=== PATIENT | female | born 1975 | race American Indian/Alaskan Native ===

== ENCOUNTER 2017-04-04 09:31 | Emergency (ER) | payer SELFPAY ==
[2017-04-04] MEDS ORDERED: TYLENOL PR ONE ×2 (09:49→09:55)
[2017-04-04 10:12] LABS: Basophils % (Auto) 0.4 % (0.0-1.8); Eosinophils % (Auto) 0.1 % (0.0-4.3); Hematocrit 37.4 % (30.3-42.9); Hemoglobin 12.4 gm/dl (10.1-14.3); Mean Corpuscular HGB Conc 33 % (30-34); Mean Corpuscular Hemoglobin 30 pg (28-32); Mean Corpuscular Volume 89 fl (79-97); Platelet Count 291 K/mm3 (140-440); Red Blood Count 4.19 M/mm3 (3.65-5.03); Red Cell Distribution Width 14.6 % (13.2-15.2); White Blood Count 12.7 K/mm3 (4.5-11.0)
[2017-04-04] MEDS ORDERED: TORADOL IV ONE (10:22)
[2017-04-04] MEDS ORDERED: NACL 0.9% 1000 ML 1,000 ML IV ONE ×2 (10:22→17:00)
--- NOTE | 2017-04-04 10:27 | Emergency Department Report ---
ED Abdominal Pain HPI - General Chief Complaint: Abdominal Pain Stated Complaint: FEVER/CHILLS/ABD PAIN Time Seen by Provider: 04/04/17 09:55 Source: patient Mode of arrival: Ambulatory Limitations: No Limitations - History of Present Illness Initial Comments: 42-year-old female who presents emergency Department with right lower quadrant pain. Patient has had 3 days of abdominal pain. Pain is been getting worse. She's had fevers to 104 at home. She's had some nausea and vomiting as well. She has a history of a hysterectomy but still has her appendix and gallbladder. Denies diarrhea or constipation. -: Gradual, days(s) (3) Location: RLQ Radiation: none Migration to: no migration Severity scale (0 -10): 10 Quality: stabbing, sharp Consistency: constant Improves With: nothing Worsens With: nothing Associated Symptoms: nausea, vomiting, fever, chills. denies: constipation - Related Data Home Medications Medication Instructions Recorded Confirmed Last Taken No Known Home Medications [No 04/04/17 04/04/17 Unknown Reported Home Medications] Allergies Allergy/AdvReac Type Severity Reaction Status Date / Time No Known Allergies Allergy Verified 04/04/17 09:57 ED Review of Systems ROS: Stated complaint: FEVER/CHILLS/ABD PAIN Other details as noted in HPI Comment: All other systems reviewed and negative Constitutional: denies: chills, fever Eyes: denies: eye pain, eye discharge, vision change ENT: denies: ear pain, throat pain Respiratory: denies: cough, shortness of breath, wheezing Cardiovascular: denies: chest pain, palpitations Endocrine: no symptoms reported Gastrointestinal: abdominal pain, nausea. denies: diarrhea, constipation Genitourinary: denies: urgency, dysuria, discharge Musculoskeletal: denies: back pain, joint swelling, arthralgia Skin: denies: rash, lesions Neurological: denies: headache, weakness, paresthesias Psychiatric: denies: anxiety, depression Hematological/Lymphatic: denies: easy bleeding, easy bruising ED Past Medical Hx - Past Medical History Previous Medical History?: No - Surgical History Past Surgical History?: Yes Additional Surgical History: hysterectomy. tubal ligation. hernia repair - Family History Family history: no significant - Social History Smoking Status: Never Smoker Substance Use Type: None - Medications Home Medications: Home Medications Medication Instructions Recorded Confirmed Last Taken Type No Known Home Medications [No 04/04/17 04/04/17 Unknown History Reported Home Medications] ED Physical Exam - General Limitations: No Limitations General appearance: alert, in no apparent distress - Head Head exam: Present: atraumatic, normocephalic - Eye Eye exam: Present: normal appearance. Absent: scleral icterus, conjunctival injection - ENT ENT exam: Present: mucous membranes moist - Neck Neck exam: Present: normal inspection - Respiratory Respiratory exam: Present: normal lung sounds bilaterally. Absent: respiratory distress - Cardiovascular Cardiovascular Exam: Present: regular rate, normal rhythm. Absent: systolic murmur, diastolic murmur, rubs, gallop - GI/Abdominal GI/Abdominal exam: Present: soft, tenderness (right lower quadrant), guarding ( moderate voluntary guarding), normal bowel sounds. Absent: distended, rebound - Extremities Exam Extremities exam: Present: normal inspection - Back Exam Back exam: Present: normal inspection - Neurological Exam Neurological exam: Present: alert, oriented X3 - Psychiatric Psychiatric exam: Present: normal affect, normal mood - Skin Skin exam: Present: warm, dry, intact, normal color. Absent: rash ED Course Vital Signs 04/04/17 04/04/17 04/04/17 09:38 10:25 10:41 Temperature 103.1 F H 100.5 F H Pulse Rate 123 H 119 H Respiratory 20 18 18 Rate Blood Pressure 141/90 Blood Pressure 127/76 [Left] O2 Sat by Pulse 100 98 98 Oximetry 04/04/17 04/04/17 11:00 14:23 Temperature 98.6 F Pulse Rate 83 Respiratory 14 14 Rate Blood Pressure Blood Pressure 128/81 [Left] O2 Sat by Pulse 98 Oximetry ED Medical Decision Making - Lab Data Result diagrams: 04/04/17 09:58 04/04/17 09:58 - Medical Decision Making 42-year-old female here with abdominal pain. She is very tender right lower quadrant. She has a fever to 103 and slightly elevated blood cell count. Plan CT abdomen and plan to reassess. Patient was slightly low white count. CT shows possible pyelonephritis. Plan to treat patient with for pyelonephritis. Discussed case with Dr. Sanches will admit to the hospitalist service. Portions of this chart were dictated with dictation software. There may be dictation errors contained within this note. Critical care attestation.: If time is entered above; I have spent that time in minutes in the direct care of this critically ill patient, excluding procedure time. ED Disposition Clinical Impression: Pyelonephritis Disposition: DC-[id number] OP ADMIT IP TO THIS HOSP Is pt being admited?: Yes Condition: Stable Instructions: Abdominal Pain (ED)
[2017-04-04 10:32] LABS: Alanine Aminotransferase 12 units/L (7-56); Albumin 3.4 g/dL (3.9-5); Albumin/Globulin Ratio 0.9 %; Alkaline Phosphatase 64 units/L (35-129); Anion Gap 17 mmol/L; Blood Urea Nitrogen 4 mg/dL (7-17); Calcium 8.7 mg/dL (8.4-10.2); Carbon Dioxide 25 mmol/L (22-30); Chloride 98.1 mmol/L (98-107); Glucose 119 mg/dL (65-100); Lipase 24 units/L (13-60); Potassium 3.2 mmol/L (3.6-5.0); Sodium 137 mmol/L (137-145); Total Protein 7.1 g/dL (6.3-8.2)
[2017-04-04 11:23] LABS: Bacteria,Urine 2+ /HPF (Negative); Bilirubin,Urine NEG (Negative); Blood,Urine LG (Negative); Ketones,Urine NEG (Negative); Leukocyte Esterase,Urine LG (Negative); Mucus,Urine 1+ /HPF; Nitrite,Urine POS (Negative)
[2017-04-04 11:25] LABS: WBC,Urine > 182.0 /HPF (0.0-6.0)
--- NOTE | 2017-04-04 14:31 | Cat Scan Report ---
CT SCAN OF THE ABDOMEN AND PELVIS WITH CONTRAST: HISTORY: Right lower quadrant abdominal pain. TECHNIQUE: Helical CT in 1.25mm intervals following IV contrast. Sagittal and coronal reconstructions. FINDINGS: The liver is normal in size and is without focal defect. No gallstones or biliary dilatation are noted. The spleen and pancreas demonstrate a normal size and attenuation with no evidence of abnormal mass. The kidneys are normal size and position. 1 cm cyst in the inferior right kidney. There is a very subtle perfusion defect near the superior pole of the right kidney measuring up to 5 x 2 cm. This is seen on the contrast images and delayed images. This could represent a very early polynephritis. The left kidney is normal. The adrenal glands are normal. There is no intestinal obstruction or ascites. Normal appendix. The abdominal aorta is normal. Hysterectomy has been performed. The right ovary is normal. A 2.3 cm cyst is identified in the left ovary. There is no evidence of peritoneal air or fluid. There is no evidence of any abnormal masses or fluid collections within the pelvis. No adenopathy is identified. The bladder is normal. IMPRESSION: 2.3 cm left ovarian cyst. Questionable perfusion defect in the superior right kidney. This could represent an early right pyelonephritis. These correlate with the patient's clinical presentation.
[2017-04-04] MEDS ORDERED: MORPHINE IV ONE (14:34)
[2017-04-04] MEDS ORDERED: LEVAQUIN 750MG/150ML 750 MG/150 ML BAG IV ONE (16:15)
--- NOTE | 2017-04-04 16:17 | History and Physical Report ---
History of Present Illness Chief complaint: I have fever History of present illness: 42 YO Female with No PMH presents to ED for evaluation. Pt states that she has experienced fever, and abdominal pain for the past 3 days as well as nausea. Pt seen and evaluated in ED and found to have UTI. CT Abdomen/Pelvis was completed and did not reveal evidence of acute abdomen. Pt treated with abx therapy, and IVF resuscitation with resolution of symptoms. Pt medically optimized and back to usual state of health. Pt dischrged home with oral antibiotics and instructed to f/u pcp within 5 days for f/u care. Past History Past Medical History: No medical history, other (reviewed) Past Surgical History: hysterectomy, hernia repair, Other (tibal ligation,) Social history: . denies: smoking, alcohol abuse, prescription drug abuse Family history: hypertension Medications and Allergies Allergies Allergy/AdvReac Type Severity Reaction Status Date / Time No Known Allergies Allergy Verified 04/04/17 19:48 Home Medications Medication Instructions Recorded Confirmed Last Taken Type Ciprofloxacin HCl [Ciprofloxacin 500 mg PO Q12H #20 tab 04/04/17 Unknown Rx TAB] Ondansetron [Zofran Odt] 4 mg PO TID #15 tab.rapdis 04/04/17 Unknown Rx oxyCODONE /ACETAMINOPHEN [Percocet 1 tab PO Q8HR PRN #20 tab 04/04/17 Unknown Rx 5/325] Active Meds: Active Medications Levofloxacin/Dextrose (Levaquin 750mg/150ml) 750 mg in 150 mls @ 100 mls/hr IV ONCE ONE Stop: 04/04/17 17:44 Review of Systems Constitutional: fever Ears, nose, mouth and throat: no ear pain, no ear discharge, no tinnitis, no decreased hearing, no nose pain, no nasal congestion Breasts: no change in shape, no swelling, no mass Cardiovascular: no chest pain, no orthopnea, no palpitations, no rapid/ irregular heart beat, no edema Respiratory: no cough, no cough with sputum, no excessive sputum, no hemoptysis Gastrointestinal: no constipation, no change in bowel habits, no hematemesis, no coffee ground emesis Genitourinary Female: flank pain, no dyspareunia, no dysmenorrhea, no pelvic pain, no menorrhagia, no dysuria Rectal: no pain, no incontinence, no bleeding Musculoskeletal: no neck stiffness, no neck pain Integumentary: no rash, no pruritis, no redness Neurological: no transient paralysis, no paralysis, no weakness, no numbness, no tingling, no syncope Psychiatric: no anxiety, no memory loss, no change in sleep habits, no sleep disturbances, no hypersomnia Endocrine: no cold intolerance, no heat intolerance, no polyphagia, no excessive thirst Hematologic/Lymphatic: no easy bruising, no easy bleeding Allergic/Immunologic: no urticaria, no allergic rhinitis, no wheezing Exam - Constitutional Vitals: Temp Pulse Resp BP Pulse Ox 98.6 F 83 14 128/81 98 04/04/17 14:23 04/04/17 14:23 04/04/17 14:23 04/04/17 14:23 04/04/17 14:23 General appearance: Present: no acute distress, well-nourished - EENT Eyes: Present: PERRL ENT: hearing intact, clear oral mucosa - Neck Neck: Present: supple, normal ROM - Respiratory Respiratory effort: normal Respiratory: bilateral: CTA - Cardiovascular Heart Sounds: Present: S1 & S2. Absent: rub, click - Extremities Extremities: pulses symmetrical, No edema Peripheral Pulses: within normal limits - Abdominal General gastrointestinal: Present: soft, non-tender, non-distended, normal bowel sounds Female genitourinary: Present: normal - Integumentary Integumentary: Present: clear, warm, dry - Musculoskeletal Musculoskeletal: gait normal, strength equal bilaterally - Psychiatric Psychiatric: appropriate mood/affect, intact judgment & insight - Neurologic Neurologic: CNII-XII intact, moves all extremities Results - Labs CBC & Chem 7: 04/04/17 09:58 04/04/17 09:58 Labs: Abnormal lab results 04/04/17 04/04/17 04/04/17 Range/Units 09:58 09:58 10:41 WBC 12.7 H (4.5-11.0) K/mm3 [place] % (Auto) 13.8 H (0.0-7.3) % [place] # 1.7 H (0.0-0.8) K/mm3 Seg Neutrophils # 8.8 H (1.8-7.7) K/mm3 Potassium 3.2 L (3.6-5.0) mmol/L BUN 4 L (7-17) mg/dL Glucose 119 H (65-100) mg/dL Albumin 3.4 L (3.9-5) g/dL Urine WBC (Auto) > 182.0 H (0.0-6.0) /HPF Assessment and Plan - Patient Problems (1) UTI (urinary tract infection) Status: Acute Qualifiers: Urinary tract infection type: U Hematuria presence: H Indwelling urinary catheter type: I Encounter type: E Plan to address problem: Pt treated with IV abx, IVF resuscitation, antiemetic therapy. Pt discharged home with oral abx, and instructed to f/u pcp 5 days for f/u care
[2017-04-04] MEDS ORDERED: ZOFRAN IV ONE (18:37)
[2017-04-04 21:07] VITALS: BP 145/85
== END 2017-04-04 21:08 | disposition admitted as inpatient to this hospital (09) ==
LOC: ED 09:31
DX: N12 Tubulo-interstitial nephritis, not specified as acute or chronic (principal)
CPT/HCPCS: 36415; 74177; 80053; 81001; 82140; 83690; 84703; 85025; 87040; 96361; 96365; 96375; 99284; J1885; J1956; J2270; J2405; J7030; Q9967